=== PATIENT | male | born 1950 | race Caucasian/White ===

== ENCOUNTER 2016-12-18 20:20 | Inpatient (IN) | payer MEDICARE, OTHER ==
[~2016-12-18] VITALS: Ht 172.7 cm; Wt 80.3 kg
[~2016-12-18 20:20] MED LIST: ALBU8HFA4 INH; Acetaminophen PO; CALC-223 PO; CLOT14.2 TOP; CRAN450T9 PO; DULO30CA2 PO; FOLI1TAB16 PO; HYDR-548 PO; LACT10SO7 PO; MAGN400O4 PO; MULT-659 PO; Magnesium Oxide PO; SPIR25TA PO; THIA100T13 PO; TRAZ-144 PO
--- NOTE | 2016-12-18 20:55 | NUR ---
Received pt from [facility] c/o right sided abdominal pain, pt pin pointing at left lower quadrant, have unusual size at left side, soft to touch, has a abdominal vertical side scar, per pt he had surgery 15 yrs ago.
--- NOTE | 2016-12-18 21:10 | NUR ---
EKG is being done.
--- NOTE | 2016-12-18 21:14 | NUR ---
Labs are being drawn.
[2016-12-18] MEDS ORDERED: IV NORMAL SALINE 1000 ML BAG IV ONE (21:15)
--- NOTE | 2016-12-18 21:20 | NUR ---
Left for Xray/CT
--- NOTE | 2016-12-18 21:22 | NUR ---
IV inserted left AC g 20
[2016-12-18 21:46] LABS: CALCIUM 7.9 mg/dL (8.5-10.1); CREATININE 0.8 mg/dL (0.6-1.3); POTASSIUM 3.5 mmol/L (3.5-5.1)
[2016-12-18 21:52] LABS: ALBUMIN 2.9 g/dL (3.4-5.0); BILIRUBIN,TOTAL 1.9 mg/dL (0.2-1.0); TOTAL PROTEIN, SERUM 7.5 g/dL (6.4-8.2)
[2016-12-18 21:53] LABS: TROPONIN I < 0.017 ng/mL (0.00-0.056)
[2016-12-18 21:59] LABS: LACTIC ACID 3.3 mmol/L (0.4-2.0)
[2016-12-18 22:00] LABS: EOSINOPHILS # (AUTO) 0.1 K/uL (0.0-0.7); HEMOGLOBIN 13.9 g/dL (14.0-18.0)
--- NOTE | 2016-12-18 22:00 | NUR ---
Came back from [place]. Nutritionists need to redraw CBC.
[2016-12-18 22:05] LABS: BASOPHILS % (AUTO) 0.7 % (0.0-2.0); EOSINOPHILS % (AUTO) 1.1 % (0.0-7.0); HEMATOCRIT 40.5 % (40.0-50.0); LYMPHOCYTES # (AUTO) 1.1 K/uL (0.8-4.8); LYMPHOCYTES % (AUTO) 21.2 % (20.5-51.5); MEAN CORPUSCULAR HEMOGLOBIN 32.2 uug (27.0-31.0); MEAN CORPUSCULAR HGB CONC 35 g/dL (32.0-37.0); MEAN CORPUSCULAR VOLUME 93.4 fL (82.0-92.0); MONOCYTES # (AUTO) 0.7 K/uL (0.1-1.30); MONOCYTES % (AUTO) 13.5 % (0.0-11.0); NEUTROPHILS # (AUTO) 3.2 K/uL (1.8-8.9); NEUTROPHILS % (AUTO) 63.5 % (38.5-71.5); RED BLOOD CELL COUNT(AUTO) 4.33 MIL/uL (4.70-6.10); RED CELL DISTRIBUTION WIDTH 14.4 % (11.5-14.5); WHITE BLOOD COUNT (AUTO) 5.1 K/uL (4.0-11.2)
--- NOTE | 2016-12-18 22:05 | NUR ---
Now in the bathroom, ambulatory. Awaits for urine.
[2016-12-18 22:08] LABS: PLATELET COUNT (AUTO) 66 K/uL (150-450)
--- NOTE | 2016-12-18 22:10 | NUR ---
Sent urine to lab.
[2016-12-18 22:11] LABS: PLATELET ESTIMATE DECREASED
[2016-12-18 22:12] LABS: EOSINOPHILS % (MANUAL) 1 % (0-8); LYMPHOCYTES % (MANUAL) 22 % (20-40); MONOCYTES % (MANUAL) 7 % (2-10); NEUTROPHILS % (MANUAL) 70 % (42-75)
[2016-12-18 22:25] LABS: *BILIRUBIN,URIN NEGATIVE (NEGATIVE); *BLOOD, URINE Trace-intact (NEGATIVE); *CLARITY,URINE SLIGHTLY CLOUDY (CLEAR); *COLOR,URINE YELLOW (YELLOW); *KETONES,URINE NEGATIVE (NEGATIVE); *PROTEIN,URINE NEGATIVE (NEGATIVE); LEUKOCYTE ESTERASE ,URINE NEGATIVE (NEGATIVE); NITRITE, URINE NEGATIVE (NEGATIVE); UGLUCOSE NEGATIVE (NEGATIVE)
[2016-12-18 22:31] LABS: BACTERIA,URINE NONE SEEN /HPF (NONE SEEN); RBC,URINE 0-3 /HPF (0-3); SQUAMOUS EPITHELIAL CELL,UR FEW /HPF (NONE SEEN)
--- NOTE | 2016-12-18 22:45 | NUR ---
Trnasferred pt to 2nd floor room 218 via wheelchair with RN.Given documents to JAYSON Herring, pt ambulated to bed.
--- NOTE | 2016-12-18 22:50 | NUR ---
ADMITTED NEW PATIENT TO ROOM 218, ALERT,ORIENTED, ABLE TO AMBULATE ,IN NO ACUTE DISTRESS,V/S WNL,PATIENT SEEN BY DR. GEIGER.
[2016-12-18 23:10] VITALS: BP 117/79
[2016-12-18] MEDS ORDERED: ONDANSETRON 4 MG/2 ML VIAL IV PRN (23:15)
[2016-12-18] MEDS ORDERED: ALBUTEROL SULFATE 2.5 MG/3 ML NEBU NEB PRN (23:15)
[2016-12-18] MEDS ORDERED: ACETAMINOPHEN 325 MG TABLET PO PRN (23:15)
[2016-12-18] MEDS ORDERED: MORPHINE SULFATE 4 MG/1 ML DISP.SYRIN ONE (23:43)
[2016-12-18] MEDS ORDERED: LACTULOSE 20 G/30 ML LIQUID UDC ONE (23:44)
[2016-12-18] MEDS: LACTULOSE 20 G/30 ML LIQUID UDC PO SCH (23:53)
[2016-12-18] MEDS: MORPHINE SULFATE 2 MG/1 ML DISP.SYRIN IV PRN (23:54)
--- NOTE | 2016-12-18 23:55 | NUR ---
morphine 4 mg iv admin for c/o right abdominal pain 06/28.
[2016-12-19 00:58] VITALS: BP 114/73
[2016-12-19 04:00] VITALS: BP 125/77
[2016-12-19] MEDS: MORPHINE SULFATE 2 MG/1 ML DISP.SYRIN IV PRN ×3 (06:26→20:46)
[2016-12-19] MEDS ORDERED: MORPHINE SULFATE 4 MG/1 ML DISP.SYRIN ONE (06:29)
--- NOTE | 2016-12-19 06:34 | NUR ---
PATIENT SLEPT INTERMITTENTLY,V/S WNL, SR ON MONITOR,CONTINUE PAIN CONTROL WITH MORPHINE 4 MG IV,EFFECTIVE.
[2016-12-19 06:40] LABS: LACTIC ACID 1.5 mmol/L (0.4-2.0)
[2016-12-19 07:09] LABS: ALBUMIN 2.6 g/dL (3.4-5.0); BILIRUBIN,TOTAL 1.8 mg/dL (0.2-1.0); CALCIUM 7.6 mg/dL (8.5-10.1); CREATININE 0.7 mg/dL (0.6-1.3); MAGNESIUM 1.8 mg/dL (1.8-2.4); POTASSIUM 3.3 mmol/L (3.5-5.1); TOTAL PROTEIN, SERUM 6.9 g/dL (6.4-8.2)
[2016-12-19 07:11] LABS: TROPONIN I 0.024 ng/mL (0.00-0.056)
[2016-12-19 07:23] LABS: THYROID STIMULATING HORMONE 1.72 mIU/mL (0.358-3.740)
[2016-12-19 07:26] LABS: BASOPHILS % (AUTO) 0.9 % (0.0-2.0); EOSINOPHILS # (AUTO) 0.1 K/uL (0.0-0.7); EOSINOPHILS % (AUTO) 3.6 % (0.0-7.0); HEMATOCRIT 37.8 % (40.0-50.0); HEMOGLOBIN 12.9 g/dL (14.0-18.0); MEAN CORPUSCULAR HEMOGLOBIN 31.4 uug (27.0-31.0); MEAN CORPUSCULAR HGB CONC 34 g/dL (32.0-37.0); MONOCYTES # (AUTO) 0.7 K/uL (0.1-1.30); MONOCYTES % (AUTO) 17.8 % (0.0-11.0); NEUTROPHILS % (AUTO) 52.7 % (38.5-71.5); PLATELET COUNT (AUTO) 57 K/uL (150-450); RED BLOOD CELL COUNT(AUTO) 4.11 MIL/uL (4.70-6.10); RED CELL DISTRIBUTION WIDTH 14.3 % (11.5-14.5)
[2016-12-19 07:46] LABS: WHITE BLOOD COUNT (AUTO) 3.8 K/uL (4.0-11.2)
--- NOTE | 2016-12-19 08:00 | NUR ---
Pt has large hernia on right abdomen. Pt also c/o back pain. Plan of care implemented for proper pain management and fall precaution. Pt agreeable with plan of care. Call light is within reach.
[2016-12-19] MEDS: MULTIVIT, IRON, MIN NO. 8, FA TABLET PO SCH (08:16)
[2016-12-19] MEDS: CALCIUM CARB/VITAMIN D 250MG-125UNITS TABLET PO SCH ×2 (08:16→20:37)
[2016-12-19] MEDS: FOLIC ACID 1 MG TABLET PO SCH (08:16)
[2016-12-19] MEDS: DULOXETINE 30 MG CAPSULE.DR PO SCH (08:16)
[2016-12-19] MEDS: THIAMINE HCL 100 MG TABLET PO SCH (08:16)
[2016-12-19 08:17] LABS: EOSINOPHILS % (MANUAL) 8 % (0-8); LYMPHOCYTES % (MANUAL) 32 % (20-40); MONOCYTES % (MANUAL) 12 % (2-10); NEUTROPHILS % (MANUAL) 48 % (42-75)
[2016-12-19] MEDS: FAMOTIDINE. 20 MG/2 ML VIAL IV SCH ×2 (08:18→20:46)
[2016-12-19 08:20] LABS: PLATELET ESTIMATE DECRE; TEAR DROP CELLS 1+
[2016-12-19] MEDS: SPIRONOLACTONE 25 MG TABLET PO SCH (08:24)
[2016-12-19] MEDS ORDERED: [UNRECOGNIZED DRUG - OTHER] PO SCH (09:00)
[2016-12-19] MEDS ORDERED: Medication Not On Formulary EA (Multivits,Th W-Fe,Other Min (Thera-M) 1 EACH) PO SCH (09:00)
[2016-12-19] MEDS ORDERED: VITD3 PO SCH (09:00)
[2016-12-19] MEDS ORDERED: POTASSIUM CHLORIDE 20 MEQ TAB.PRT.SR PO ONE (11:15)
[2016-12-19] MEDS: LACTULOSE 20 G/30 ML LIQUID UDC PO SCH ×2 (11:48→22:39)
[2016-12-19 12:04] VITALS: BP 130/79
[2016-12-19 16:00] VITALS: BP 124/76
--- NOTE | 2016-12-19 18:33 | NUR ---
Pt's pain managed with morphine as ordered. Plan of care effective. Pt currently on a tolerable pain level of 3/10. Pt is in no acute distress. Call light is within reach. pt had small bowel movement from the lactulose for the elevated nh3 level.
[2016-12-19 20:35] VITALS: BP 138/79
[2016-12-19] MEDS: TRAZODONE 50 MG TABLET PO SCH (20:36)
[2016-12-19] MEDS: MAGNESIUM OXIDE 400 MG TABLET PO SCH (20:37)
[2016-12-19] MEDS ORDERED: [UNRECOGNIZED DRUG - OTHER] PO SCH (21:00)
[2016-12-19] MEDS ORDERED: MAGNESIUM OXIDE PO SCH (21:00)
[2016-12-20 00:39] VITALS: BP 126/80
[2016-12-20 04:00] VITALS: BP 120/78
[2016-12-20 07:17] LABS: HEMATOCRIT 36.8 % (40.0-50.0); HEMOGLOBIN 12.4 g/dL (14.0-18.0); MEAN CORPUSCULAR HEMOGLOBIN 31.9 uug (27.0-31.0); MEAN CORPUSCULAR HGB CONC 34 g/dL (32.0-37.0); MEAN CORPUSCULAR VOLUME 94.5 fL (82.0-92.0); RED CELL DISTRIBUTION WIDTH 14.8 % (11.5-14.5)
[2016-12-20 07:32] LABS: ALBUMIN 2.5 g/dL (3.4-5.0); BILIRUBIN,TOTAL 2.1 mg/dL (0.2-1.0); CALCIUM 8.2 mg/dL (8.5-10.1); CREATININE 0.8 mg/dL (0.6-1.3); MAGNESIUM 1.8 mg/dL (1.8-2.4); PHOSPHOROUS 3.5 mg/dL (2.5-4.9); POTASSIUM 3.9 mmol/L (3.5-5.1); TOTAL PROTEIN, SERUM 6.7 g/dL (6.4-8.2)
[2016-12-20 07:38] LABS: WHITE BLOOD COUNT (AUTO) 1.9 K/uL (4.0-11.2)
[2016-12-20 07:39] LABS: PLATELET COUNT (AUTO) 27 K/uL (150-450)
--- NOTE | 2016-12-20 08:00 | NUR ---
Pt is in no acute distress. IV on left ac intact. Call light is within reach. Plan of care discussed with pt re: proper pain management and fall precaution.
[2016-12-20] MEDS: SPIRONOLACTONE 25 MG TABLET PO SCH (08:26)
[2016-12-20] MEDS: MULTIVIT, IRON, MIN NO. 8, FA TABLET PO SCH (08:26)
[2016-12-20] MEDS: FOLIC ACID 1 MG TABLET PO SCH (08:26)
[2016-12-20] MEDS: FAMOTIDINE. 20 MG/2 ML VIAL IV SCH ×2 (08:26→20:36)
[2016-12-20] MEDS: CALCIUM CARB/VITAMIN D 250MG-125UNITS TABLET PO SCH ×2 (08:26→20:36)
[2016-12-20] MEDS: DULOXETINE 30 MG CAPSULE.DR PO SCH (08:26)
[2016-12-20] MEDS: THIAMINE HCL 100 MG TABLET PO SCH (08:26)
[2016-12-20 09:03] LABS: BAND % (MANUAL) 2 % (0-10); BASOPHILS % (MANUAL) 1 % (0-2); EOSINOPHILS % (MANUAL) 4 % (0-8); LYMPHOCYTES % (MANUAL) 19 % (20-40); MONOCYTES % (MANUAL) 15 % (2-10); NEUTROPHILS % (MANUAL) 59 % (42-75)
[2016-12-20 09:04] LABS: PLATELET ESTIMATE DECRE; SMUDGE CELLS FEW
[2016-12-20 09:05] LABS: ANISOCYTOSIS 1+
[2016-12-20] MEDS ORDERED: FILGRASTIM 300 MCG/ML VIAL SUBCUT ONE (09:15)
[2016-12-20] MEDS ORDERED: TBO-FILGRASTIM 300 MCG/0.5 ML SYRINGE SQ ONE (10:00)
[2016-12-20 11:09] VITALS: BP 126/78
[2016-12-20] MEDS: LACTULOSE 20 G/30 ML LIQUID UDC PO SCH (12:20)
[2016-12-20] MEDS: MORPHINE SULFATE 2 MG/1 ML DISP.SYRIN IV PRN ×2 (12:20→18:14)
[2016-12-20 15:09] VITALS: BP 147/90
[2016-12-20 20:00] VITALS: BP 135/76
[2016-12-20] MEDS: TRAZODONE 50 MG TABLET PO SCH (20:36)
[2016-12-20] MEDS: MAGNESIUM OXIDE 400 MG TABLET PO SCH (20:36)
[2016-12-21] VITALS (7 sets, daily range): BP systolic 114–134; BP diastolic 67–80
[2016-12-21] MEDS: LACTULOSE 20 G/30 ML LIQUID UDC PO SCH ×2 (00:01→11:31)
[2016-12-21] MEDS: MORPHINE SULFATE 2 MG/1 ML DISP.SYRIN IV PRN (00:02)
[2016-12-21 06:50] LABS: BASOPHILS % (AUTO) 0.6 % (0.0-2.0); EOSINOPHILS # (AUTO) 0.1 K/uL (0.0-0.7); EOSINOPHILS % (AUTO) 1.1 % (0.0-7.0); HEMATOCRIT 37.4 % (40.0-50.0); HEMOGLOBIN 12.6 g/dL (14.0-18.0); LYMPHOCYTES # (AUTO) 0.5 K/uL (0.8-4.8); LYMPHOCYTES % (AUTO) 7.8 % (20.5-51.5); MEAN CORPUSCULAR HEMOGLOBIN 31.7 uug (27.0-31.0); MEAN CORPUSCULAR HGB CONC 34 g/dL (32.0-37.0); MEAN CORPUSCULAR VOLUME 94.3 fL (82.0-92.0); MONOCYTES # (AUTO) 0.7 K/uL (0.1-1.30); MONOCYTES % (AUTO) 9.9 % (0.0-11.0); NEUTROPHILS # (AUTO) 5.5 K/uL (1.8-8.9); NEUTROPHILS % (AUTO) 80.6 % (38.5-71.5); RED BLOOD CELL COUNT(AUTO) 3.97 MIL/uL (4.70-6.10); RED CELL DISTRIBUTION WIDTH 15.3 % (11.5-14.5); WHITE BLOOD COUNT (AUTO) 6.8 K/uL (4.0-11.2)
[2016-12-21 06:57] LABS: PLATELET COUNT (AUTO) 24 K/uL (150-450)
[2016-12-21 07:30] LABS: ALBUMIN 2.6 g/dL (3.4-5.0); BILIRUBIN,TOTAL 2.1 mg/dL (0.2-1.0); CALCIUM 8.4 mg/dL (8.5-10.1); CREATININE 0.9 mg/dL (0.6-1.3); MAGNESIUM 1.6 mg/dL (1.8-2.4); PHOSPHOROUS 2.8 mg/dL (2.5-4.9); TOTAL PROTEIN, SERUM 6.9 g/dL (6.4-8.2)
[2016-12-21 07:48] LABS: FOLIC ACID 17.1 NG/ML (8.6-58.9)
[2016-12-21 08:05] LABS: BAND % (MANUAL) 3 % (0-10); BASOPHILS % (MANUAL) 0 % (0-2); EOSINOPHILS % (MANUAL) 0 % (0-8); LYMPHOCYTES % (MANUAL) 10 % (20-40); MONOCYTES % (MANUAL) 8 % (2-10); NEUTROPHILS % (MANUAL) 79 % (42-75)
[2016-12-21 08:06] LABS: ANISOCYTOSIS 1+; PLATELET ESTIMATE DECREASED
[2016-12-21] MEDS: FAMOTIDINE. 20 MG/2 ML VIAL IV SCH (08:37)
[2016-12-21] MEDS: FOLIC ACID 1 MG TABLET PO SCH (08:37)
[2016-12-21] MEDS: THIAMINE HCL 100 MG TABLET PO SCH (08:37)
[2016-12-21] MEDS: SPIRONOLACTONE 25 MG TABLET PO SCH (08:37)
[2016-12-21] MEDS: CALCIUM CARB/VITAMIN D 250MG-125UNITS TABLET PO SCH ×2 (08:37→20:50)
[2016-12-21] MEDS: DULOXETINE 30 MG CAPSULE.DR PO SCH (08:37)
[2016-12-21] MEDS: MULTIVIT, IRON, MIN NO. 8, FA TABLET PO SCH (08:37)
[2016-12-21] MEDS ORDERED: LIDOCAINE HCL 1% 20 ML VIAL IJ PRN (09:00)
[2016-12-21 09:26] LABS: THYROID STIMULATING HORMONE 1.212 mIU/mL (0.358-3.740)
[2016-12-21] MEDS: MORPHINE SULFATE 4 MG/1 ML DISP.SYRIN IV PRN ×2 (13:53→20:42)
[2016-12-21] MEDS ORDERED: MAGNESIUM OXIDE 400 MG TABLET PO ONE (14:00)
--- NOTE | 2016-12-21 18:00 | NUR ---
Pt is in no acute distress. PT tolerated bone marrow biosy with dr sherman. Pt is to have plt transfusion tonight secondary to plt count of 24. Call light is within reach.
--- NOTE | 2016-12-21 19:30 | NUR ---
RECEIVED PATIENT RESTING IN BED, NO ACUTE DISTRESS. CALL LIGHT WITHIN REACH. WILL CONTINUE TO MONITOR.
[2016-12-21] MEDS: MAGNESIUM OXIDE 400 MG TABLET PO SCH (20:51)
[2016-12-21] MEDS: TRAZODONE 50 MG TABLET PO SCH (20:51)
[2016-12-21] MEDS: FAMOTIDINE 20 MG TABLET PO SCH (20:51)
--- NOTE | 2016-12-21 22:00 | NUR ---
PATIENT SIGNED CONSENT FOR PLATELET TRANSFUSION
[2016-12-22] MEDS: LACTULOSE 20 G/30 ML LIQUID UDC PO SCH ×2 (00:14→10:23)
[2016-12-22 00:15] VITALS: BP 136/80
[2016-12-22 01:15] VITALS: BP 133/81
[2016-12-22] MEDS: MORPHINE SULFATE 4 MG/1 ML DISP.SYRIN IV PRN ×2 (01:53→08:13)
--- NOTE | 2016-12-22 02:00 | NUR ---
PATIENT RECEIVED 1 UNIT OF PLATELETS, TOLERATED WELL, REMAINS STABLE, AFEBRILE, NO ADVERSE REACTION, NO ACUTE DISTRESS NOTED. WILL CONTINUE TO MONITOR.
[2016-12-22 06:34] VITALS: BP 122/75
--- NOTE | 2016-12-22 06:34 | NUR ---
PATIENT RESTING IN BED, NO ACUTE DISTRESS, AFEBRILE. WILL CONTINUE TO MONITOR
[2016-12-22 07:04] LABS: BASOPHILS % (AUTO) 0.4 % (0.0-2.0); EOSINOPHILS # (AUTO) 0.1 K/uL (0.0-0.7); EOSINOPHILS % (AUTO) 3.3 % (0.0-7.0); HEMATOCRIT 33.5 % (40.0-50.0); HEMOGLOBIN 11.4 g/dL (14.0-18.0); LYMPHOCYTES # (AUTO) 0.7 K/uL (0.8-4.8); LYMPHOCYTES % (AUTO) 14.6 % (20.5-51.5); MEAN CORPUSCULAR HEMOGLOBIN 32.4 uug (27.0-31.0); MEAN CORPUSCULAR HGB CONC 34 g/dL (32.0-37.0); MEAN CORPUSCULAR VOLUME 94.9 fL (82.0-92.0); MONOCYTES # (AUTO) 0.6 K/uL (0.1-1.30); MONOCYTES % (AUTO) 12.7 % (0.0-11.0); NEUTROPHILS # (AUTO) 3.1 K/uL (1.8-8.9); RED BLOOD CELL COUNT(AUTO) 3.53 MIL/uL (4.70-6.10); RED CELL DISTRIBUTION WIDTH 15.6 % (11.5-14.5); WHITE BLOOD COUNT (AUTO) 4.5 K/uL (4.0-11.2)
[2016-12-22 07:19] LABS: PLATELET COUNT (AUTO) 46 K/uL (150-450)
[2016-12-22 07:20] LABS: ALBUMIN 2.6 g/dL (3.4-5.0); BILIRUBIN,TOTAL 1.1 mg/dL (0.2-1.0); CALCIUM 8.4 mg/dL (8.5-10.1); CREATININE 0.8 mg/dL (0.6-1.3); MAGNESIUM 1.9 mg/dL (1.8-2.4); PHOSPHOROUS 3.3 mg/dL (2.5-4.9); POTASSIUM 3.9 mmol/L (3.5-5.1); TOTAL PROTEIN, SERUM 6.5 g/dL (6.4-8.2)
--- NOTE | 2016-12-22 07:30 | NUR ---
PT RECEIVED IN BED AWAKE.NI C/O PAIN NOTED.V/S ARE STABLE,
[2016-12-22] MEDS: FOLIC ACID 1 MG TABLET PO SCH (08:03)
[2016-12-22] MEDS: MULTIVIT, IRON, MIN NO. 8, FA TABLET PO SCH (08:03)
[2016-12-22] MEDS: CALCIUM CARB/VITAMIN D 250MG-125UNITS TABLET PO SCH (08:03)
[2016-12-22] MEDS: DULOXETINE 30 MG CAPSULE.DR PO SCH (08:03)
[2016-12-22] MEDS: FAMOTIDINE 20 MG TABLET PO SCH (08:04)
[2016-12-22] MEDS: THIAMINE HCL 100 MG TABLET PO SCH (08:04)
[2016-12-22] MEDS: SPIRONOLACTONE 25 MG TABLET PO SCH (08:05)
[2016-12-22 11:08] VITALS: BP 128/71
[2016-12-22 11:31] LABS: BAND % (MANUAL) 1 % (0-10); LYMPHOCYTES % (MANUAL) 12 % (20-40); MONOCYTES % (MANUAL) 11 % (2-10); NEUTROPHILS % (MANUAL) 71 % (42-75)
[2016-12-22 13:06] LABS: *IMMUNOGLOBULIN G, SERUM 2001 mg/dL (700-1600); IMMUNOGLOBULIN A, SERUM 530 mg/dL (61-437); IMMUNOGLOBULIN M, SERUM 98 mg/dL (20-172)
--- NOTE | 2016-12-22 13:57 | NUR ---
D/C ORDERS RECEIVED NOTED AND CARRIED OUT.D/C INSTRUCTIONS AND EDUCATIONS GIVEN TO THE PT.D/C [facility] PER MD ORDERS.PT VERBALIZED UNDERSTANDING ALL THE INSTRUCTION.PT LEFT THE FACILITY VIA PRIVATE CAR IN STABLE CONDITION.
[2016-12-23 11:06] LABS: A/G RATIO 0.9 (0.7-1.7); ALPHA-1-GLOBULIN 0.2 g/dL (0.0-0.4); ALPHA-2-GLOBULIN 0.4 g/dL (0.4-1.0); BETA GLOBULIN 0.7 g/dL (0.7-1.3); GLOBULIN, TOTAL 3.3 g/dL (2.2-3.9); M-SPIKE Not Observed g/dL (Not Observed)
== END 2016-12-22 14:03 | disposition home or self-care (01) | DRG 432 ==
LOC: ER 20:24 → TELE 22:42 → MED 12-20 18:45
PROVIDERS: ADMIT Internal Medicine; ATTEND Internal Medicine
PROC: 07DR3ZX Extraction of Iliac Bone Marrow, Percutaneous Approach, Diagnostic (ICD-10-PCS; principal; 2016-12-21)
PROC: 30233R1 Transfusion of Nonautologous Platelets into Peripheral Vein, Percutaneous Approach (ICD-10-PCS; 2016-12-21)
DX: K70.31 Alcoholic cirrhosis of liver with ascites (principal); E43 Unspecified severe protein-calorie malnutrition; E87.1 Hypo-osmolality and hyponatremia; E87.2 Acidosis; D61.818 Other pancytopenia; D68.59 Other primary thrombophilia; I85.10 Secondary esophageal varices without bleeding; M48.56XA Collapsed vertebra, not elsewhere classified, lumbar region, initial encounter for fracture; K72.10 Chronic hepatic failure without coma; K43.9 Ventral hernia without obstruction or gangrene; E78.5 Hyperlipidemia, unspecified; D53.9 Nutritional anemia, unspecified; E83.42 Hypomagnesemia; F41.9 Anxiety disorder, unspecified; J44.9 Chronic obstructive pulmonary disease, unspecified; K80.20 Calculus of gallbladder without cholecystitis without obstruction; N40.0 Benign prostatic hyperplasia without lower urinary tract symptoms; R16.1 Splenomegaly, not elsewhere classified; R74.0 Nonspecific elevation of levels of transaminase and lactic acid dehydrogenase [LDH]; Z86.73 Personal history of transient ischemic attack (TIA), and cerebral infarction without residual deficits; I10 Essential (primary) hypertension; K46.9 Unspecified abdominal hernia without obstruction or gangrene; G89.29 Other chronic pain; I25.2 Old myocardial infarction; Z59.0 Homelessness; F10.21 Alcohol dependence, in remission; Z68.26 Body mass index [BMI] 26.0-26.9, adult; I86.4 Gastric varices
CPT/HCPCS: 36415; 70030-TC; 71010; 82746; 82784; 83550; 83605; 83690; 83735; 84100; 84155; 84165; 84443; 85025; 85730; 86334; 86850; 86900; 86901; 87040; 87086; 93005; 97001; 97116; A4663; J1447; J2270; J3490; J7030; J7050; P9021; P9035-BL

== ENCOUNTER 2016-12-27 02:27 | Emergency (ER) | payer MEDICARE, OTHER ==
[~2016-12-27] VITALS: Ht 172.7 cm; Wt 69.4 kg
[2016-12-27] MEDS ORDERED: HYDROMORPHONE 1 MG/1 ML DISP.SYRIN IM ONE (03:15)
[2016-12-27 03:47] LABS: CALCIUM 7.9 mg/dL (8.5-10.1); CREATININE 0.8 mg/dL (0.6-1.3); POTASSIUM 3.3 mmol/L (3.5-5.1)
[2016-12-27 03:52] LABS: BASOPHILS % (AUTO) 0.9 % (0.0-2.0); EOSINOPHILS # (AUTO) 0.1 K/uL (0.0-0.7); EOSINOPHILS % (AUTO) 1.6 % (0.0-7.0); HEMATOCRIT 36.8 % (40.0-50.0); HEMOGLOBIN 12.7 g/dL (14.0-18.0); LYMPHOCYTES # (AUTO) 0.8 K/uL (0.8-4.8); LYMPHOCYTES % (AUTO) 24.3 % (20.5-51.5); MEAN CORPUSCULAR HGB CONC 35 g/dL (32.0-37.0); MEAN CORPUSCULAR VOLUME 92.4 fL (82.0-92.0); MONOCYTES # (AUTO) 0.8 K/uL (0.1-1.30); MONOCYTES % (AUTO) 24.3 % (0.0-11.0); NEUTROPHILS # (AUTO) 1.5 K/uL (1.8-8.9); NEUTROPHILS % (AUTO) 48.9 % (38.5-71.5); PLATELET COUNT (AUTO) 52 K/uL (150-450); RED BLOOD CELL COUNT(AUTO) 3.98 MIL/uL (4.70-6.10); RED CELL DISTRIBUTION WIDTH 14.9 % (11.5-14.5); WHITE BLOOD COUNT (AUTO) 3.2 K/uL (4.0-11.2)
[2016-12-27 03:53] LABS: ALBUMIN 2.8 g/dL (3.4-5.0); BILIRUBIN,TOTAL 1.7 mg/dL (0.2-1.0); TOTAL PROTEIN, SERUM 7.4 g/dL (6.4-8.2)
[2016-12-27] MEDS ORDERED: HYDROMORPHONE 1 MG/1 ML DISP.SYRIN ONE (04:24)
[2016-12-27] MEDS ORDERED: LACTULOSE 20 G/30 ML LIQUID UDC PO ONE (04:30)
[2016-12-27] MEDS ORDERED: POTASSIUM CHLORIDE 20 MEQ TAB.PRT.SR PO ONE (04:30)
[2016-12-27] MEDS ORDERED: POTASSIUM CHLORIDE 20 MEQ TAB.PRT.SR ONE (04:42)
[2016-12-27] MEDS ORDERED: LACTULOSE 20 G/30 ML LIQUID UDC ONE (04:42)
[2016-12-27] MEDS ORDERED: NORMAL SALINE FLUSH 10 ML DISP.SYRIN ONE (04:43)
[2016-12-27] MEDS ORDERED: IOHEXOL 300MG/ML 100 ML INFUS..BTL ONE (04:43)
[2016-12-27] MEDS ORDERED: IV NORMAL SALINE 250 ML IV ONE (04:43)
[2016-12-27 06:22] LABS: BAND % (MANUAL) 11 % (0-10); EOSINOPHILS % (MANUAL) 1 % (0-8); LYMPHOCYTES % (MANUAL) 17 % (20-40); METAMYELOCYTES % 1 % (0-1); MONOCYTES % (MANUAL) 9 % (2-10); NEUTROPHILS % (MANUAL) 61 % (42-75); PLATELET ESTIMATE DECREASED
--- NOTE | 2016-12-27 06:37 | NUR ---
Patient given written and verbal discharge instructions. Patient verbalizes understanding of instructions. Patient is ambulatory with steady gait. Refuses offer of senior care placement. Patient given list of available shelters in surrounding area.
== END 2016-12-27 06:40 | disposition home or self-care (01) ==
LOC: ER 02:27
DX: S20.212A Contusion of left front wall of thorax, initial encounter (principal); S30.1XXA Contusion of abdominal wall, initial encounter; H61.23 Impacted cerumen, bilateral; D61.818 Other pancytopenia; F10.20 Alcohol dependence, uncomplicated; E72.20 Disorder of urea cycle metabolism, unspecified; I10 Essential (primary) hypertension; J44.9 Chronic obstructive pulmonary disease, unspecified; R51 Headache; V09.9XXA Pedestrian injured in unspecified transport accident, initial encounter; Y93.89 Activity, other specified; Y99.8 Other external cause status; Y92.89 Other specified places as the place of occurrence of the external cause
CPT/HCPCS: 36415; 70030-TC; 70470; 71010; 72125; 85025; 85610; 85730; 93005; A4663; J1170; J3490; J7050; Q9967